=== PATIENT | male | born 1950 | race American Indian/Alaskan Native ===

== ENCOUNTER 2017-11-12 14:25 | Inpatient (IN) | payer MEDICARE ==
[2017-11-12] MEDS ORDERED: Promethazine/Cod 6.25mg-10mg/5ml Syr UD PO STA (14:48)
--- NOTE | 2017-11-12 14:51 | ED PDOC ---
Arrival/HPI - General Chief Complaint: Flu-like Symptoms Time Seen by Provider: 11/12/17 14:26 Historian: Patient, Family (brother) - History of Present Illness Narrative History of Present Illness (Text): 11/12/17 14:49 This 67 yo male who denies pmh, former smoker, presents to this ED with his brother complaining of nasal discharge, right ear discharge x 3 days. Brother stated patient has lost weight. Patient admits decreased appetite. Patient also noted a cough for 3 -4 days. Denies fever, sob, cp, abdominal pain, or abnormal gait. Time/Duration: Other (see hpi) Context: Home Past Medical History - Provider Review Nursing Documentation Reviewed: Yes - Psychiatric Hx Psychophysiologic Disorder: No Hx Substance Use: No - Anesthesia Hx Anesthesia: No Family/Social History - Physician Review Nursing Documentation Reviewed: Yes Family/Social History: Other (noncontributory) Smoking Status: Never Smoked Hx Alcohol Use: Yes Frequency of alcohol use: Socially Hx Substance Use: No Allergies/Home Meds Allergies/Adverse Reactions: Allergies No Known Allergies Allergy (Verified 11/12/17 14:28) Review of Systems - Review of Systems Constitutional: Normal. absent: Fatigue, Weight Change, Fevers Eyes: Normal ENT: Sore Throat, Rhinorrhea, Other (right ear drainage) Respiratory: Cough. absent: SOB, Sputum, Wheezing Cardiovascular: Normal. absent: Chest Pain, Palpitations, Edema Gastrointestinal: Normal. absent: Abdominal Pain, Nausea, Vomiting Genitourinary Male: Normal. absent: Dysuria, Frequency, Hematuria Musculoskeletal: Normal. absent: Back Pain, Neck Pain, Myalgias Skin: Normal. absent: Rash Neurological: Headache (see hpi). absent: Dizziness, Focal Weakness, Gait Changes, Speech Changes, Facial Droop, Disequilibrium, Seizure Endocrine: Normal Hemo/Lymphatic: Normal Psychiatric: Normal Physical Exam Vital Signs Temp Pulse Resp BP Pulse Ox 11/12/17 16:37 73 137/98 H 11/12/17 16:33 72 18 137/98 H 97 11/12/17 14:32 97.8 F 98 H 17 146/107 H 94 L Temperature: Afebrile Blood Pressure: Hypertensive Pulse: Regular Respiratory Rate: Normal Appearance: Positive for: Well-Appearing, Non-Toxic, Comfortable Pain Distress: None Mental Status: Positive for: Alert and Oriented X 3 - Systems Exam Head: Present: Atraumatic, Normocephalic Pupils: Present: PERRL Extroacular Muscles: Present: EOMI Conjunctiva: Present: Normal Ears: Present: TM Bulging, Fluid, Other ((+) right ear drainage. (+) Mild b/l mastoid tenderness with cellulitis) Mouth: Present: Moist Mucous Membranes, Normal Lips, Normal Tounge. No: Drooling Pharnyx: Present: Normal. No: ERYTHEMA, EXUDATE, TONSILS ENLARGED Nose (External): Present: Atraumatic Nose (Internal): Present: Rhinorrhea Neck: Present: Normal Range of Motion, Trachea Midline. No: Meningeal Signs, MIDLINE TENDERNESS, Paraspinal Tenderness, Lymphadenopathy Respiratory/Chest: Present: Clear to Auscultation, Good Air Exchange. No: Respiratory Distress, Accessory Muscle Use, Wheezes, Retracting, Rhonchi Cardiovascular: Present: Regular Rate and Rhythm, Normal S1, S2. No: Murmurs Abdomen: Present: Normal Bowel Sounds. No: Tenderness, Distention, Peritoneal Signs, Rebound, Guarding Back: Present: Normal Inspection. No: CVA Tenderness Upper Extremity: Present: Normal Inspection, Normal ROM. No: Cyanosis, Edema Lower Extremity: Present: Normal Inspection, Normal ROM. No: Edema Neurological: Present: GCS=15, CN II-XII Intact, Speech Normal Skin: Present: Warm, Dry, Normal Color. No: Rashes Psychiatric: Present: Alert, Oriented x 3, Normal Insight, Normal Concentration Medical Decision Making ED Course and Treatment: 11/12/17 16:[address] Hoffman regarding mastoiditis, weight loss, decreased appetite, CKD, hypercalcemia. He agreed with plan for admission. He said he would enter medical consults. Re-evaluation Time: 16:56 Reassessment Condition: Re-examined, Improving,but remains with symptoms - Lab Interpretations Lab Results: 11/12/17 15:00 11/12/17 15:00 Lab Results 11/12/17 15:00: Magnesium 1.6 L, Lactate Dehydrogenase 470, Total Creatine Kinase 46, Troponin I < 0.01 11/12/17 15:00: Sodium 141, Potassium 3.4 L, Chloride 105, Carbon Dioxide 24, Anion Gap 16, BUN 23 H, Creatinine 1.6 H, Est GFR ( Amer) 53, Est GFR ( Non-Af Amer) 44, Random Glucose 115 H, Calcium 11.3 H, Total Bilirubin 0.7, AST 32, ALT 31, Alkaline Phosphatase 66, Total Protein 9.0 H, Albumin 3.8, Globulin 5.2, Albumin/Globulin Ratio 0.7 L 11/12/17 15:00: Influenza Typ A,B (EIA) Negative for flu a/b 11/12/17 15:00: WBC 10.3, RBC 3.66, Hgb 11.1 L, Hct 33.2 L, MCV 90.7, MCH 30.3, MCHC 33.4, RDW 11.3 L, Plt Count 384, MPV 10.5, Gran % 61.4, Lymph % (Auto) 28.3 , Bell % (Auto) 9.6 H, Eos % (Auto) 0.6 L, Baso % (Auto) 0.1, Gran # 6.35, Lymph # (Auto) 2.9, Bell # (Auto) 1.0 H, Eos # (Auto) 0.1, Baso # (Auto) 0.01 I have reviewed the lab results: Yes Interpretation: Abnormal lab values - RAD Interpretation Narrative RAD Interpretations (Text): 11/12/17 16:53 PROCEDURE: CT OF THE TEMPORAL BONES WITHOUT CONTRAST HISTORY: right mastoid pain, right ear discharge COMPARISON: None available. TECHNIQUE: High resolution axial images of the temporal bones were obtained. Coronal and sagittal reformats were generated. Radiation dose: Total exam DLP = 954 mGy-cm. This CT exam was performed using one or more of the following dose reduction techniques: Automated exposure control, adjustment of the mA and/or kV according to patient size, and/or use of iterative reconstruction technique. FINDINGS: RIGHT TEMPORAL BONE: RIGHT MIDDLE EAR: Complete opacification. The scutum and ossicles are intact RIGHT INNER EAR: Cochlea: Normal Semicircular canals: Normal RIGHT MASTOID AIR CELLS: Complete opacification of mastoid air cells RIGHT INTERNAL AUDITORY CANAL: Normal RIGHT EXTERNAL AUDITORY CANAL: Normal RIGHT VESTIBULAR AND COCHLEAR AQUEDUCT: Normal OTHER: LEFT TEMPORAL BONE: LEFT MIDDLE EAR: Complete opacification. The scutum and ossicles are intact LEFT INNER EAR: Cochlea: Normal Semicircular canals: Normal LEFT MASTOID AIR CELLS: Complete opacification of mastoid air cells LEFT INTERNAL AUDITORY CANAL: Normal LEFT EXTERNAL AUDITORY CANAL: Normal LEFT VESTIBULAR AND COCHLEAR AQUEDUCTS: Normal OTHER FINDINGS: None . IMPRESSION: Bilateral otomastoiditis. 11/12/17 17:05 chest x-rays: NAD Radiology Orders: 11/12/17 14:48 CHEST TWO VIEWS (PA/LAT) [RAD] Stat 11/12/17 14:58 HEAD W/O CONTRAST [CT] Stat 11/12/17 15:01 MASTOIDS W/O CONTRAST [CT] Stat - EKG Interpretation Interpreted by ED Physician: Yes (NSR @ [address] changes) Type: 12 lead EKG Comparison: No previous EKG avail. - Medication Orders Current Medication Orders: Vancomycin HCl (Vancomycin 1gm) 1 gm in 250 mls @ 167 mls/hr IVPB STAT STA PRN Reason: Protocol Stop: 11/12/17 17:22 Last Admin: 11/12/17 16:50 Dose: 167 mls/hr eMAR Start Stop Document 11/12/17 16:50 SRE (Rec: 11/12/17 16:51 SRE [id number]) Intravenous Solution Start Date 11/12/17 Start Time 16:51 End Date 11/12/17 End time 18:25 Total Infusion Time 94 Sodium Chloride (Sodium Chloride 0.9%) 1,000 mls @ 999 mls/hr IV .[id number] STA Stop: 11/12/17 17:13 Last Admin: 11/12/17 16:35 Dose: 999 mls/hr eMAR Start Stop Document 11/12/17 16:35 SRE (Rec: 11/12/17 16:36 SRE [id number]) Intravenous Solution Start Date 11/12/17 Start Time 16:36 End Date 11/12/17 End time 17:40 Total Infusion Time 64 Sodium Chloride (Sodium Chloride 0.45%) 1,000 mls @ 60 mls/hr IV .[id number] PATY Ceftriaxone Sodium (Rocephin 1 Gram Ivpb) 1 gm in 100 mls @ 100 mls/hr IVPB DAILY PATY PRN Reason: Protocol Discontinued Medications Amlodipine Besylate (Norvasc) 5 mg PO STAT STA Stop: 11/12/17 16:18 Last Admin: 11/12/17 16:37 Dose: 5 mg MAR Pulse and Blood Pressure Document 11/12/17 16:37 SRE (Rec: 11/12/17 16:37 SRE [id number]) Pulse Pulse Rate (60-90) 73 Blood Pressure Blood Pressure (100/60-150/90) 137/98 Ceftriaxone Sodium (Rocephin 1 Gram Ivpb) 1 gm in 100 mls @ 200 mls/hr IVPB STAT STA PRN Reason: Protocol Stop: 11/12/17 16:21 Last Admin: 11/12/17 16:12 Dose: 200 mls/hr eMAR Start Stop Document 11/12/17 16:12 SRE (Rec: 11/12/17 16:13 SRE [id number]) Intravenous Solution Start Date 11/12/17 Start Time 16:13 End Date 11/12/17 End time 17:15 Total Infusion Time 62 Potassium Chloride (K-Dur 20 Meq Er Tab) 20 meq PO STAT STA Stop: 11/12/17 16:19 Last Admin: 11/12/17 16:37 Dose: 20 meq Promethazine HCl/Codeine (Phenergan/Codeine Oral Syrup) 5 ml PO STAT STA Stop: 11/12/17 14:49 Last Admin: 11/12/17 15:03 Dose: 5 ml Disposition/Present on Arrival - Present on Arrival Any Indicators Present on Arrival: No History of DVT/PE: No History of Uncontrolled Diabetes: No Urinary Catheter: No History of Decub. Ulcer: No History Surgical Site Infection Following: None - Disposition Have Diagnosis and Disposition been Completed?: Yes Diagnosis: Mastoiditis of both sides, CKD (chronic kidney disease), Hypercalcemia, Weight loss, unintentional, Ear drainage right Disposition: HOSPITALIZED Disposition Time: 16:59 Patient Plan: Admission Patient Problems: Current Active Problems Problem Status Onset CKD (chronic kidney disease) Acute Ear drainage right Acute Hypercalcemia Acute Mastoiditis of both sides Acute Weight loss, unintentional Acute Condition: STABLE Referrals: [employer] Mamta Palomino, [Primary Care Provider] - Follow up with primary Forms: [employer] (Cameroonian)
[2017-11-12 15:16] LABS: ALB/GLOB RATIO 0.7 (1.1-1.8); ALBUMIN 3.8 g/dL (3.0-4.8); CALCIUM 11.3 mg/dL (8.4-10.5)
[2017-11-12 15:26] LABS: BASO # 0.01 K/mm3 (0.0-2.0); BASO % 0.1 % (0.0-3.0); EOS # 0.1 (0.0-0.7); EOS % 0.6 % (1.5-5.0); GRAN # 6.35 (1.4-6.5); GRAN % 61.4 % (50.0-68.0); HEMOGLOBIN 11.1 g/dL (14.0-18.0); LYMPH # 2.9 (1.2-3.4); LYMPH % 28.3 % (22.0-35.0); MEAN CELL VOLUME 90.7 fl (80.0-105.0); MEAN CORPUSCULAR HEMOGLOBIN 30.3 pg (25.0-35.0); MEAN CORPUSCULAR HGB CONC 33.4 g/dl (31.0-37.0); MEAN PLATELET VOLUME 10.5 fl (7.0-11.0); MONO % 9.6 % (1.0-6.0); RBC 3.66 10^6/uL (3.5-6.1); RED CELL DISTRIBUTION WIDTH 11.3 % (11.5-14.5); WHITE BLOOD COUNT 10.3 10^3/ul (4.5-11.0)
[2017-11-12 15:38] LABS: MAGNESIUM 1.6 mg/dL (1.7-2.2)
[2017-11-12 15:51] LABS: TROPONIN I < 0.01 ng/mL
[2017-11-12] MEDS ORDERED: cefTRIAXone 1 gm 1 GM/100 ML BAG IVPB STA (15:52)
[2017-11-12] MEDS ORDERED: Vancomycin 1gm in NS 250ml 1 GM/250 ML BAG IVPB STA (15:53)
[2017-11-12] MEDS ORDERED: Sodium Chloride 0.9% 1,000 ML IV STA (16:13)
[2017-11-12] MEDS ORDERED: Potassium Chloride 20 mEq ER Tab PO STA (16:18)
--- NOTE | 2017-11-12 16:36 | CT ---
PROCEDURE: CT HEAD WITHOUT CONTRAST. HISTORY: right side CARIAS COMPARISON: None available. TECHNIQUE: Axial computed tomography images were obtained through the head/brain without intravenous contrast. Radiation dose: Total exam DLP = 906 mGy-cm. This CT exam was performed using one or more of the following dose reduction techniques: Automated exposure control, adjustment of the mA and/or kV according to patient size, and/or use of iterative reconstruction technique. FINDINGS: HEMORRHAGE: No intracranial hemorrhage. BRAIN: No mass effect or edema. No atrophy or chronic microvascular ischemic changes. VENTRICLES: Unremarkable. No hydrocephalus. CALVARIUM: Unremarkable. PARANASAL SINUSES: Unremarkable as visualized. No significant inflammatory changes. MASTOID AIR CELLS: Bilateral mastoiditis OTHER FINDINGS: None. IMPRESSION: No acute intracranial findings. Bilateral mastoiditis
--- NOTE | 2017-11-12 16:40 | CT ---
PROCEDURE: CT OF THE TEMPORAL BONES WITHOUT CONTRAST HISTORY: right mastoid pain, right ear discharge COMPARISON: None available. TECHNIQUE: High resolution axial images of the temporal bones were obtained. Coronal and sagittal reformats were generated. Radiation dose: Total exam DLP = 954 mGy-cm. This CT exam was performed using one or more of the following dose reduction techniques: Automated exposure control, adjustment of the mA and/or kV according to patient size, and/or use of iterative reconstruction technique. FINDINGS: RIGHT TEMPORAL BONE: RIGHT MIDDLE EAR: Complete opacification. The scutum and ossicles are intact RIGHT INNER EAR: Cochlea: Normal Semicircular canals: Normal RIGHT MASTOID AIR CELLS: Complete opacification of mastoid air cells RIGHT INTERNAL AUDITORY CANAL: Normal RIGHT EXTERNAL AUDITORY CANAL: Normal RIGHT VESTIBULAR AND COCHLEAR AQUEDUCT: Normal OTHER: LEFT TEMPORAL BONE: LEFT MIDDLE EAR: Complete opacification. The scutum and ossicles are intact LEFT INNER EAR: Cochlea: Normal Semicircular canals: Normal LEFT MASTOID AIR CELLS: Complete opacification of mastoid air cells LEFT INTERNAL AUDITORY CANAL: Normal LEFT EXTERNAL AUDITORY CANAL: Normal LEFT VESTIBULAR AND COCHLEAR AQUEDUCTS: Normal OTHER FINDINGS: None . IMPRESSION: Bilateral otomastoiditis.
--- NOTE | 2017-11-12 17:17 | RAD ---
HISTORY: cough COMPARISON: No prior. TECHNIQUE: Chest PA and lateral FINDINGS: LUNGS: No active pulmonary disease. PLEURA: No significant pleural effusion identified. No pneumothorax apparent. CARDIOVASCULAR: Normal. OSSEOUS STRUCTURES: No significant abnormalities. VISUALIZED UPPER ABDOMEN: Normal. OTHER FINDINGS: None. IMPRESSION: No active disease.
[2017-11-12] MEDS: Sodium Chloride 0.45% 1,000 ML IV SCH (17:44)
[2017-11-12 18:01] VITALS: BMI 27.8
[2017-11-12] MEDS: Piperacillin/Tazobact 3.375 gm 100 ML IVPB SCH ×2 (18:15→23:06)
[2017-11-12 21:58] LABS: URINE BILIRUBIN NEGATIVE (NEGATIVE); URINE BLOOD LARGE (NEGATIVE); URINE GLUCOSE (UA) NEGATIVE (NEGATIVE); URINE LEUKOCYTE ESTERASE SMALL Leu/uL (NEGATIVE); URINE NITRATE NEGATIVE (NEGATIVE); URINE PROTEIN NEGATIVE mg/dL (<30 mg/dL); URINE UROBILINOGEN 0.2 E.U./dL (<1 E.U./dL)
[2017-11-12 22:55] LABS: URINE APPEARANCE SL CLOUDY (CLEAR); URINE COLOR YELLOW (YELLOW)
[2017-11-12 22:56] LABS: URINE RBC TNTC /hpf (0-2)
[2017-11-12 22:57] LABS: URINE BACTERIA MOD (NEG)
[2017-11-13] MEDS: Piperacillin/Tazobact 3.375 gm 100 ML IVPB SCH ×4 (06:16→23:29)
[2017-11-13 06:59] LABS: HEMOGLOBIN 9.9 g/dL (14.0-18.0); MEAN CELL VOLUME 90.7 fl (80.0-105.0); MEAN CORPUSCULAR HEMOGLOBIN 29.6 pg (25.0-35.0); MEAN CORPUSCULAR HGB CONC 32.7 g/dl (31.0-37.0); MEAN PLATELET VOLUME 10.3 fl (7.0-11.0); RBC 3.34 10^6/uL (3.5-6.1); RED CELL DISTRIBUTION WIDTH 11.4 % (11.5-14.5); WHITE BLOOD COUNT 8.7 10^3/ul (4.5-11.0)
[2017-11-13 07:16] LABS: ALB/GLOB RATIO 0.7 (1.1-1.8); ALBUMIN 3.3 g/dL (3.0-4.8); CALCIUM 10.9 mg/dL (8.4-10.5)
--- NOTE | 2017-11-13 07:35 | HP ---
HISTORY OF PRESENT ILLNESS: I was called down to the emergency room. He is there with his brother. He is complaining of nasal discharge, right ear discharge for three days with pus, also he has weight loss, decreased appetite. He has flu symptoms for three to four days, coughing, no fever though. He is a 67-year-old man, was not feeling well for three days and then when his ear started to drain pus in the right ear, he decided to come to the emergency room. He is a former smoker. He has no real history. He does not see any doctors. REVIEW OF SYSTEMS: He is tired. He has got pus coming out of his right ear. He has got a sore throat. He is coughing. No chest pain or palpitations. No abdominal pain, nausea, or vomiting. He has got a sore throat. No problems urinating. No back pain. Skin for the most part is intact. I do not think he has any rashes or ulcers. He does have headache but not dizzy. No anxiety or depression. PHYSICAL EXAMINATION: GENERAL: He is comfortable in bed right now. He is alert and oriented x3. VITAL SIGNS: He has 97.8 temp, 98 pulse, 17 respiratory rate, 146/107 blood pressure, 94% O2 sat. HEENT: He can hardly hear because of the pus in his ear. Head is atraumatic, normocephalic. Extraocular muscles are intact. Pupils are equal and reactive to light. Throat is moist. Ears: He has got pus coming out of the right ear. Fluid in the left ear. NECK: Supple. HEART: Regular rate. Normal S1 and S2. LUNGS: Clear to auscultation with decreased breath sounds bilaterally. ABDOMEN: Soft, nontender. Positive bowel sounds. No guarding. No rebound. No CVA tenderness. EXTREMITIES: No edema. NEUROLOGICAL: GCS is 15. Cranial nerves II through XII grossly intact. He is alert and oriented x3. SKIN: Warm and dry. No apparent ulcers or rashes appreciated. LYMPHATIC: Thyroid is midline. No palpable lymphadenopathy. LABORATORY DATA: He had multiple labs and tests. He has a 141 sodium; potassium 3.4, potassium is replaced. BUN 23, creatinine is 1.6. I started him on IV fluids. GFR is 44, sugar is 115, we will keep an eye on the blood sugar; calcium 11.3, hopefully that will come down with IV fluids. Magnesium is 1.6, total bili is 0.7, AST is 32, ALT is 31, alkaline phosphatase 66, total protein 9, lactate dehydrogenase is 47. Total creatinine kinase is 46. Troponin I is less than 0.01, albumin is 3.8. White count is 7.3, hemoglobin 11.2, hematocrit 33.2, platelets are 384. IMPRESSION AND PLAN: He will have a consult with Ear, Nose, and Throat, also Infectious Disease. He will be on Rocephin, potassium replacement and intravenous fluids. He was given a dose of vancomycin in the emergency room. He has a head CT pending and mastoid CT pending. He is here for possible mastoiditis. He has renal insufficiency, hypertension, low potassium, high calcium. Olvin Hoffman DO
--- NOTE | 2017-11-13 07:46 | CP.PCM.CON ---
<Dione Love - Last Filed: 11/13/17 08:37> History of Present Illness - History of Present Illness History of Present Illness: ENT consult for Dr. Hitchcock on behalf of Dr. Camarena Consulted for: BL otomastoiditis Patient is a 67M with 3 days of BL ear pain, sore throat, and decreased hearing. History is difficult to obtain d/t patient difficulty hearing. Yesterday purulent drainage began from his right ear. Patient denies any fevers , chills, but reports cough productive of non-bloody mucus. Patient states that throat pain has since resolved but that his loss of hearing has worsened. Denies any other symptoms. Patient states that he has never had this before. Review of Systems - Review of Systems All systems: reviewed and no additional remarkable complaints except (as per HPI ) Past Patient History - Past Social History Smoking Status: Former Smoker - MUSCULOSKELETAL/RHEUMATOLOGICAL Hx Falls: No - PSYCHIATRIC Hx Psychophysiologic Disorder: No - SURGICAL HISTORY Hx Surgeries: No - ANESTHESIA Hx Anesthesia: No Meds Allergies/Adverse Reactions: Allergies Allergy/AdvReac Type Severity Reaction Status Date / Time No Known Allergies Allergy Verified 11/12/17 14:28 - Medications Medications: Current Medications Sodium Chloride (Sodium Chloride 0.45%) 1,000 mls @ 60 mls/hr IV .[id number] [facility] Last Admin: 11/12/17 17:44 Dose: 60 mls/hr Ceftriaxone Sodium (Rocephin 1 Gram Ivpb) 1 gm in 100 mls @ 100 mls/hr IVPB DAILY [facility] PRN Reason: Protocol Piperacillin Sod/Tazobactam Sod (Zosyn 3.375 In Ns 100ml) 100 mls @ 200 mls/hr IVPB Q6 PATY PRN Reason: Protocol Stop: 11/19/17 18:01 Last Admin: 11/13/17 06:16 Dose: 200 mls/hr Physical Exam - Constitutional Appears: Well, Non-toxic, No Acute Distress - Head Exam Head Exam: ATRAUMATIC, NORMOCEPHALIC Additional comments: no mastoid erythema, crepitus, or tenderness. No skull lesions or evidence of trauma - ENT Exam ENT Exam: Mucous Membranes Moist, Normal Oropharynx Additional comments: right ear without erythema, non-tender, with purulent drainage in the external auditory canal. Left ear non-erythematous, non-tender, no erythema of the auditory canal, with purulence behind the tympanic membrane - Neck Exam Neck exam: Positive for: Normal Inspection. Negative for: Lymphadenopathy, Tenderness - Respiratory Exam Respiratory Exam: NORMAL BREATHING PATTERN. absent: Accessory Muscle Use, Respiratory Distress - Cardiovascular Exam Cardiovascular Exam: RRR - GI/Abdominal Exam GI & Abdominal Exam: Soft. absent: Distended, Tenderness - Extremities Exam Extremities exam: Positive for: pedal pulses present. Negative for: calf tenderness, pedal edema - Neurological Exam Neurological exam: Alert, Oriented x3 Additional comments: gross decreased hearing BL - Psychiatric Exam Psychiatric exam: Normal Affect, Normal Mood - Skin Skin Exam: Dry, Intact, Normal Color, Warm Results - Vital Signs Recent Vital Signs: Last Vital Signs Temp 99 F 11/13/17 00:00 Pulse 69 11/13/17 00:00 Resp 20 11/13/17 00:00 BP 133/98 H 11/13/17 00:00 Pulse Ox 95 11/13/17 00:00 - Labs Result Diagrams: 11/13/17 06:15 11/13/17 06:15 Labs: Laboratory Results - last 24 hr 11/12/17 11/13/17 11/13/17 21:30 06:15 06:15 WBC 8.7 RBC 3.34 L Hgb 9.9 L Hct 30.3 L MCV 90.7 MCH 29.6 MCHC 32.7 RDW 11.4 L Plt Count 327 MPV 10.3 Sodium 141 Potassium 3.8 Chloride 107 Carbon Dioxide 26 Anion Gap 12 BUN 19 Creatinine 1.6 H Est GFR ( Amer) 53 Est GFR (Non-Af Amer) 44 Random Glucose 94 Calcium 10.9 H Total Bilirubin 0.7 AST 35 ALT 25 Alkaline Phosphatase 59 Total Protein 8.0 Albumin 3.3 Globulin 4.7 Albumin/Globulin Ratio 0.7 L Urine Color Yellow Urine Appearance Sl cloudy Urine pH 6.0 Ur Specific Douglas 1.020 Urine Protein Negative Urine Glucose (UA) Negative Urine Ketones Negative Urine Blood Large H Urine Nitrate Negative Urine Bilirubin Negative Urine Urobilinogen 0.2 Ur Leukocyte Esterase Small H Urine RBC Tntc Urine WBC 10 - 15 Ur Epithelial Cells 6 - 8 Urine Bacteria Mod Assessment & Plan - Assessment and Plan (Free Text) Assessment: 67M with BL otomastoiditis Plan: -Continue IV antibiotics and add ciprofloxacin drops BID BL ears -Culture ear fluid -f/u ID recommendations -encourage PO hydration Discussed with Dr. Hitchcock on behalf of Dr. Camarena, further recs per their service Dione Love, PGY2 <Bhupendra Khan - Last Filed: 11/13/17 15:57> Meds - Medications Medications: Current Medications Amlodipine Besylate (Norvasc) 5 mg PO DAILY [facility] Last Admin: 11/13/17 09:25 Dose: 5 mg Ciprofloxacin/Dexamethasone (Ciprodex Otic) 4 drop AU BID [facility] Last Admin: 11/13/17 09:25 Dose: 4 drop Sodium Chloride (Sodium Chloride 0.45%) 1,000 mls @ 60 mls/hr IV .[id number] [facility] Last Admin: 11/13/17 09:26 Dose: 60 mls/hr Piperacillin Sod/Tazobactam Sod (Zosyn 3.375 In Ns 100ml) 100 mls @ 200 mls/hr IVPB Q6 [facility] PRN Reason: Protocol Stop: 11/19/17 18:01 Last Admin: 11/13/17 12:07 Dose: 200 mls/hr Results - Vital Signs Recent Vital Signs: Last Vital Signs Temp 98.6 F 11/13/17 07:30 Pulse 88 11/13/17 09:25 Resp 20 11/13/17 07:30 BP 138/98 H 11/13/17 09:25 Pulse Ox 96 11/13/17 07:30 - Labs Result Diagrams: 11/13/17 06:15 11/13/17 06:15 Labs: Laboratory Results - last 24 hr 11/12/17 11/13/17 11/13/17 21:30 06:15 06:15 WBC 8.7 RBC 3.34 L Hgb 9.9 L Hct 30.3 L MCV 90.7 MCH 29.6 MCHC 32.7 RDW 11.4 L Plt Count 327 MPV 10.3 Sodium 141 Potassium 3.8 Chloride 107 Carbon Dioxide 26 Anion Gap 12 BUN 19 Creatinine 1.6 H Est GFR ( Amer) 53 Est GFR (Non-Af Amer) 44 Random Glucose 94 Calcium 10.9 H Total Bilirubin 0.7 AST 35 ALT 25 Alkaline Phosphatase 59 Total Protein 8.0 Albumin 3.3 Globulin 4.7 Albumin/Globulin Ratio 0.7 L Urine Color Yellow Urine Appearance Sl cloudy Urine pH 6.0 Ur Specific Douglas 1.020 Urine Protein Negative Urine Glucose (UA) Negative Urine Ketones Negative Urine Blood Large H Urine Nitrate Negative Urine Bilirubin Negative Urine Urobilinogen 0.2 Ur Leukocyte Esterase Small H Urine RBC Tntc Urine WBC 10 - 15 Ur Epithelial Cells 6 - 8 Urine Bacteria Mod Assessment & Plan (1) Mastoiditis of both sides Status: Acute Comment: I examined patient at bedside and agree with above report and treatment care plan. Dr Khan
[2017-11-13] MEDS: Ciprofloxacin/Dexamethasone OTIC SUSP AU SCH ×2 (09:25→17:28)
[2017-11-13] MEDS: Sodium Chloride 0.45% 1,000 ML IV SCH (09:26)
--- NOTE | 2017-11-13 09:52 | CARD ---
APPROVED REPORT EKG Measurement Heart [id number] <Conclusion> Normal sinus rhythm Normal ECG
[2017-11-13] MEDS ORDERED: cefTRIAXone 1 gm 1 GM/100 ML BAG IVPB SCH (10:00)
--- NOTE | 2017-11-13 12:51 | PN ---
DATE: SUBJECTIVE: I admitted him last night. He is having bilateral ear pus coming out, also with a bilateral mastoiditis on CAT scan. He is being seen by ENT and Infectious Disease. He is currently on Zosyn. He had a dose of vancomycin. He is on Rocephin, IV fluids. He is about the same, not much of a difference yet . PHYSICAL EXAMINATION VITAL SIGNS: He has a 98.6 temperature, 69 pulse, 144/97 blood pressure, I will address his blood pressure. He has a 20 respiratory rate, 96% O2 sat on room air. HEENT: Head is atraumatic, normocephalic. Pus coming out of both ears. Throat is moist. NECK: Supple. HEART: Regular rate. LUNGS: Decreased breath sounds, but clear. ABDOMEN: Soft. EXTREMITIES: No edema. MEDICATIONS: Ciprodex, Rocephin, IV fluids and Zosyn of the medicine he is on right now. LABORATORY DATA: He has a 141 sodium, potassium 3.8, better; BUN is 19, creatinine 1.6, GFR is 44, sugar is 94, calcium is 10.9, coming down; total bilirubin is 0.7, AST is 35, ALT is 25, alkaline phosphatase 59. Troponin I less than 0.01, total protein is 8. White count is 8.7, hemoglobin 9.9, hematocrit 30.3, platelets of 327. Urine is large blood, moderate bacteria. He is also having a urinary tract infection. I will also consult Urology and is negative for flu. I am going to put him on medicine for his blood pressure. Consult Urology. Continue IV antibiotics for his bilateral mastoiditis and ear infection. Olvin Hoffman DO [id number]
--- NOTE | 2017-11-13 16:11 | CP.PCM.CON ---
History of Present Illness - History of Present Illness History of Present Illness: 67 year old male with PMH of significant smoking history was brought in to [facility] complaining of right ear discharge for the past 3-4 days , associated with decreased hearing, anorexia. The patient states he was having rhinorrhea prior to this, but denies fever or chills, no sore throat, no body aches. He also denies headache, no nausea or vomiting, no shortness of breath, no cough, no abdominal pain, no diarrhea, no dysuria. CT head is showing bilateral otomastoiditis. Infectious Diseases consult is requested to further evaluate and manage. Review of Systems - Review of Systems All systems: reviewed and no additional remarkable complaints except (as per HPI ) Past Patient History - Past Social History Smoking Status: Never Smoked - PSYCHIATRIC Hx Psychophysiologic Disorder: No Hx Substance Use: No - SURGICAL HISTORY Hx Surgeries: No - ANESTHESIA Hx Anesthesia: No Meds Allergies/Adverse Reactions: Allergies Allergy/AdvReac Type Severity Reaction Status Date / Time No Known Allergies Allergy Verified 11/12/17 14:28 - Medications Medications: Current Medications Sodium Chloride (Sodium Chloride 0.45%) 1,000 mls @ 60 mls/hr IV .[id number] [facility] [place] Last Admin: 11/12/17 17:44 Dose: 60 mls/hr Ceftriaxone Sodium (Rocephin 1 Gram Ivpb) 1 gm in 100 mls @ 100 mls/hr IVPB DAILY [facility] PRN Reason: Protocol Piperacillin Sod/Tazobactam Sod (Zosyn 3.375 In Ns 100ml) 100 mls @ 200 mls/hr IVPB Q6 [facility] PRN Reason: Protocol Stop: 11/19/17 18:01 Physical Exam - Constitutional Appears: Non-toxic - Head Exam Head Exam: NORMAL INSPECTION - ENT Exam ENT Exam: Mucous Membranes Moist Additional comments: tenderness noted on both mastoids, noted of yellowish serous discharge from the right ear - Neck Exam Neck exam: Negative for: Meningismus - Respiratory Exam Respiratory Exam: Decreased Breath Sounds - Cardiovascular Exam Cardiovascular Exam: +S1, +S2 - GI/Abdominal Exam GI & Abdominal Exam: Soft. absent: Tenderness Results - Vital Signs Recent Vital Signs: Last Vital Signs Temp 97.8 F 11/12/17 14:32 Pulse 73 11/12/17 16:37 Resp 18 11/12/17 16:33 BP 137/98 H 11/12/17 16:37 Pulse Ox 97 11/12/17 16:33 - Labs Result Diagrams: 11/13/17 06:15 11/13/17 06:15 Assessment & Plan - Assessment and Plan (Free Text) Plan: Assessment Bilateral otomastoiditis Plan Follow up blood and ear discharge cultures; follow up further ENT evaluation and recommendations started patient on Zosyn will check HIV test as well will monitor clinically
[2017-11-14] MEDS: Sodium Chloride 0.45% 1,000 ML IV SCH (03:00)
[2017-11-14] MEDS: Piperacillin/Tazobact 3.375 gm 100 ML IVPB SCH ×3 (06:22→17:28)
[2017-11-14 06:57] LABS: HEMOGLOBIN 9.9 g/dL (14.0-18.0); MEAN CELL VOLUME 89.9 fl (80.0-105.0); MEAN CORPUSCULAR HEMOGLOBIN 29.3 pg (25.0-35.0); MEAN CORPUSCULAR HGB CONC 32.6 g/dl (31.0-37.0); MEAN PLATELET VOLUME 10.6 fl (7.0-11.0); RBC 3.38 10^6/uL (3.5-6.1); RED CELL DISTRIBUTION WIDTH 11.4 % (11.5-14.5); WHITE BLOOD COUNT 8.5 10^3/ul (4.5-11.0)
[2017-11-14 07:10] LABS: ALB/GLOB RATIO 0.7 (1.1-1.8); ALBUMIN 3.4 g/dL (3.0-4.8)
--- NOTE | 2017-11-14 08:19 | CON ---
DATE: 11/13/2017 GENITOURINARY CONSULTATION CHIEF COMPLAINT: Ear infection. HISTORY OF PRESENT ILLNESS: This is a 67-year-old male who is seen in his room at [facility]. The patient was admitted after complaining of a few days of nasal discharge and ear pain, also decreased appetite and flu-like symptoms. There is nothing urologic in his history and physical as far as any complaints. I discussed the consult with his nurse who reports a Urology consultation was called as patient had a urinary infection. The patient reports no voiding problem at this time. He denies any dysuria, urinary frequency, urgency, or gross hematuria. He does report having nocturia one time per night; this is a chronic problem. He has not seen a urologist or other doctors in some time. He denies any flank pain or history of kidney stones. He did feel feverish before coming to the hospital, but is unsure whether he had a fever. He denies any current chills. consultation was requested regarding the above. PAST MEDICAL HISTORY: The patient denies any diabetes, denies any high blood pressure, as per the HPI. MEDICATIONS: Currently include Ciprodex otic, Norvasc, and Zosyn. ALLERGIES: NO KNOWN DRUG ALLERGIES. FAMILY HISTORY: Noncontributory. SOCIAL HISTORY: Positive for smoking in the past, although quit. Denies EtOH use. REVIEW OF SYSTEMS: A 12-point review of systems was obtained. Positives for upper respiratory symptoms, ear pain, hard of hearing, headache. All other systems are negative. PHYSICAL EXAMINATION: GENERAL: The patient is awake and alert. He is answering questions, although somewhat hard of hearing. VITAL SIGNS: He is afebrile. Temperature was 98.6, BP 144/97, respirations 20. NECK: Supple. There is no adenopathy. CHEST: Reveals a normal inspiratory effort. CARDIAC: Showed a positive S1, S2. There was no peripheral edema. ABDOMEN: Soft, nontender, nondistended. There is no hepatosplenomegaly. There is no costovertebral angle tenderness. The bladder is not palpably distended. GENITOURINARY: Phallus is normal. Scrotum is normal. Testes are bilaterally descended, nontender, no masses. Epididymides are normal. EXTREMITIES: There is no cyanosis or edema noted. LABORATORY DATA: WBC count 8.7. GFR 63. Urinalysis showed large blood and small leukocyte esterase. Nitrites were negative. Blood cultures; no growth after 24 hours. No urine culture was done. No pertinent urologic imaging was done. IMPRESSION AND PLAN: This is a 67-year-old male with an ear infection. He is being seen by ENT and is on appropriate antibiotics. Urologically, the patient reports no symptoms of urinary infection and no voiding issues. His urinalysis does show significant blood as well as white cells. Plan will be to obtain a urine culture, although the patient is already on appropriate antibiotics. Plan would be to have the patient follow up with a urologist as an outpatient and/or his primary care physician as an outpatient. His urine should be retested and if hematuria is persistent, the patient will require a cystoscopy and upper tract evaluation. This is not the acute problem, which brought the patient to the hospital and this workup can be done as an outpatient. The patient should also have a PSA and prostate exam as well once his acute condition has improved. Thank you for allowing me to participate in the care of this patient. Eric Covington MD
--- NOTE | 2017-11-14 09:02 | CP.PCM.PN ---
Subjective - Date & Time of Evaluation Date of Evaluation: 11/14/17 Time of Evaluation: 08:58 - Subjective Subjective: ENT: Dr. Camarena Pt seen and examined. Resting comfortably in bed. Pain and hearing improved. Still has drainage from R ear. No F/C. Objective - Vital Signs/Intake and Output Vital Signs (last 24 hours): Temp Pulse Resp BP Pulse Ox 97.6 F 59 L 20 134/97 H 96 11/14/17 07:30 11/14/17 07:30 11/14/17 07:30 11/14/17 07:30 11/14/17 07:30 Intake and Output: 11/14/17 11/14/17 06:59 18:59 Intake Total 2380 Balance 2380 - Medications Medications: Current Medications Amlodipine Besylate (Norvasc) 5 mg PO DAILY [facility] Last Admin: 11/13/17 09:25 Dose: 5 mg Ciprofloxacin/Dexamethasone (Ciprodex Otic) 4 drop AU BID [facility] Last Admin: 11/13/17 17:28 Dose: 4 drop Sodium Chloride (Sodium Chloride 0.45%) 1,000 mls @ 60 mls/hr IV .[id number] [facility] Last Admin: 11/14/17 03:00 Dose: 60 mls/hr Piperacillin Sod/Tazobactam Sod (Zosyn 3.375 In Ns 100ml) 100 mls @ 200 mls/hr IVPB Q6 [facility] PRN Reason: Protocol Stop: 11/19/17 18:01 Last Admin: 11/14/17 06:22 Dose: 200 mls/hr - Labs Labs: 11/14/17 06:15 11/14/17 06:15 - Constitutional Appears: Non-toxic, No Acute Distress - Head Exam Head Exam: ATRAUMATIC, NORMOCEPHALIC - Eye Exam Eye Exam: EOMI - ENT Exam Additional comments: R ear draining white pus - GI/Abdominal Exam GI & Abdominal Exam: Soft. absent: Tenderness - Extremities Exam Extremities Exam: absent: Calf Tenderness, Pedal Edema - Neurological Exam Neurological Exam: Alert, Awake, Oriented x3 Assessment and Plan - Assessment and Plan (Free Text) Assessment: 67M w. Otomastoiditis -c/w ciprodex drops BID -c/w zosyn per ID -will d/w attending Zemaitis PGY3
[2017-11-14] MEDS ORDERED: Potassium Chloride 20 mEq ER Tab PO ONE (09:09)
[2017-11-14] MEDS: Ciprofloxacin/Dexamethasone OTIC SUSP AU SCH ×2 (09:25→17:25)
--- NOTE | 2017-11-14 15:22 | PN ---
DATE: SUBJECTIVE: He is resting comfortably in bed. He is actually doing a bit better. He is actually can hear better and has no discharge coming from his ears today. He is on Ciprodex, Norvasc, IV fluids, and Zosyn. I think he is starting to improve. He is eating a little bit also. OBJECTIVE: VITAL SIGNS: He has a 97.6 temperature, 59 pulse, 134/97 blood pressure, 20 respiratory rate, and 96% O2 sat on room air. I will change his blood pressure medication around this. HEENT: Head is atraumatic and normocephalic. Normal pus from the ears. Throat is moist. NECK: Supple. HEART: Regular rate. LUNGS: Clear to auscultation. ABDOMEN: Soft. EXTREMITIES: No edema. LABORATORY DATA: He has an 8.5 white count, 9.9 hemoglobin, 30.4 hematocrit with 330 platelets. Sodium 139, potassium 3.5, I will replace the potassium. He has a BUN of 19, creatinine 1.6. GFR is 44. Sugar is 88. Calcium is 11. Total bilirubin is 0.7, AST is 42, ALT is 29, alk phos is 61. Troponin I is less than 0.01. Total protein is 8.4. Urine with moderate bacteria, so we are treating him for a UTI. His micro was okay. ASSESSMENT AND PLAN: He is being seen by Infectious Disease, Urology for urinary tract infection, and Ears, Nose, and Throat. He has bilateral otomastoiditis. We will give him IV antibiotics. We are going to increase his Norvasc to 10 mg. Check his labs tomorrow. I will continue with aggressive treatment and care on [facility] [place] for bilateral otomastoiditis. Olvin Hoffman DO
--- NOTE | 2017-11-14 16:46 | PN ---
DATE: SUBJECTIVE: This 67-year-old male with acute/chronic otitis with questionable mastoiditis. He is seen with a chronic suppurative otitis infection. The patient is both on IV and topical drops for therapeutic treatment. The patient has a noted interval improvement. We will continue on IV antibiotics for 48 to 72 hours and continue drops as the patient has noted a decrease in the progression and drainage with decreasing pain. The patient is unable to hear. IMPRESSION: Acute right mastoiditis, suppurative otitis media with conductive/sensorineural hearing loss. 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 Fernando Camarena DO
[2017-11-15] MEDS: Piperacillin/Tazobact 3.375 gm 100 ML IVPB SCH ×2 (00:36→05:32)
--- NOTE | 2017-11-15 00:49 | PN ---
DATE: SUBJECTIVE: The patient is seen in bed, in no acute distress, nontoxic. PHYSICAL EXAMINATION: VITAL SIGNS: Temperature is 97, blood pressure is 137/90, respiratory rate of 20. HEENT: Unremarkable. NECK: Supple. LUNGS: Have decreased breath sounds. HEART: Normal S1 and S2. ABDOMEN: Soft, nontender. LABORATORY EXAMINATION: Reveals a white count is 8.5, hemoglobin of 9, platelets of 330. Chemistries reveals a BUN of 19, creatinine of 1.6. Urinalysis is noted, and influenza is negative. Microbiology reveals the blood cultures are noted and to be negative. ASSESSMENT AND PLAN: This is a 67-year-old male, who was seen earlier this morning in room 560, bed 2, with bilateral otomastoiditis and currently on Zosyn, with blood cultures negative. Ear cultures pending. Zosyn is active. Dr. Camarena's progress note is reviewed. 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 The patient's CAT scan is noted. We will follow closely with you. Jerome Weeks MD
[2017-11-15 06:53] LABS: HEMOGLOBIN 9.6 g/dL (14.0-18.0); MEAN CELL VOLUME 89.9 fl (80.0-105.0); MEAN CORPUSCULAR HEMOGLOBIN 29.4 pg (25.0-35.0); MEAN CORPUSCULAR HGB CONC 32.7 g/dl (31.0-37.0); MEAN PLATELET VOLUME 10.4 fl (7.0-11.0); RBC 3.27 10^6/uL (3.5-6.1); RED CELL DISTRIBUTION WIDTH 11.5 % (11.5-14.5); WHITE BLOOD COUNT 7.3 10^3/ul (4.5-11.0)
[2017-11-15 07:08] LABS: ALB/GLOB RATIO 0.7 (1.1-1.8); ALBUMIN 3.3 g/dL (3.0-4.8); CALCIUM 10.3 mg/dL (8.4-10.5)
[2017-11-15 07:41] VITALS: BP 132/90; PULSE 64; RESP 20; TEMP 99; O2SAT 96
[2017-11-15] MEDS: Ciprofloxacin/Dexamethasone OTIC SUSP AU SCH (08:59)
--- NOTE | 2017-11-15 22:32 | PN ---
DATE: LOCATION: Patient is in bed in room 560, bed 2. SUBJECTIVE: Patient was seen early this morning in room 560, bed 2. Doing well. No fevers, no chills. PHYSICAL EXAMINATION: VITAL SIGNS: Temperature is 99, blood pressure is 130/90, respiratory rate of 20, heart rate of 64. HEENT: Unremarkable. NECK: Supple. LUNGS: Have decreased breath sounds. HEART: Normal S1, S2. ABDOMEN: Soft, nontender. LABORATORY DATA: Reveals a white count of 7.3, hemoglobin of 9. Chemistries are noted, BUN of 18, creatinine of 1.5. Urinalysis is noted. Serology is noted. Right ear culture is coagulase-negative Staph, organism. ASSESSMENT AND PLAN: This is a 67-year-old male who was seen early this morning in 560, bed 2, who has bilateral otomastoiditis and cultures with coagulase-negative Staphylococcus, most likely a colonizer, not a true pathogen with acute right mastoiditis, suppurative otitis media, and conductive neural hearing loss and we will switch to p.o. Augmentin and p.o. doxycycline as per request of . patient to be on p.o. We will follow patient as outpatient, order an RPR and FTA. We will give at least 3 weeks, recommend a close followup with Dr. Hoffman and Dr. Camarena and myself. Patient understands all directions. He said he will follow and we will make further recommendations upon the availability of initial . Jerome Weeks MD
--- NOTE | 2017-11-16 04:22 | DS ---
HISTORY OF PRESENT ILLNESS: He is doing better. He is feeling better. There is less drainage from the right ear. He is comfortable in bed. OBJECTIVE: VITAL SIGNS: He has 99 temperature, 64 pulse, 132/90 blood pressure which is better than 138/102. I put him on Norvasc 10 mg. Respiratory rate 20, 96% O2 sat on room air. HEENT: Head is atraumatic, normocephalic. The right ear has had no more drainage, less swollen. Throat is clear. CARDIOVASCULAR: Heart is regular rate. RESPIRATORY: Lungs are clear to auscultation. ABDOMEN: Soft. EXTREMITIES: Without edema. MEDICATIONS: He is currently on Ciprodex otic, Norvasc, Zosyn IV, and IV fluids. LABORATORY DATA: He has white count of 7.3 , hemoglobin 9.6, hematocrit 29.4 with 330 platelets. Sodium 141, potassium 3.6, BUN 18, creatinine 1.5, GFR is 47, sugar is 89. Calcium is 10.3, total bilirubin is 0.5. AST is 39, ALT is 33, alkaline phosphatase 56. Troponin I was less than 0.01, total protein is 8. He had urinary tract infection. Negative for the flu. No growth in blood. ASSESSMENT AND PLAN: He is being seen by Infectious Disease and ENT and Urology. I am hoping we could change him from intravenous antibiotics to p.o. antibiotics and possibly get him discharged today. I will discuss that with Infectious Disease, and he can follow up on the outpatient with Ear, Nose and Throat. He has bilateral otomastoiditis, low potassium, otitis media, urinary tract infection, renal insufficiency, high calcium, and hypertension. He will follow up next week in the office. Olvin Hoffman DO
== END 2017-11-15 13:23 | disposition home or self-care (01) | DRG 153 ==
LOC: ED 14:25 → ERH 17:01 → 5RNO 18:02
PROVIDERS: ADMIT Family Medicine; ATTEND Family Medicine
DX: H70.003 Acute mastoiditis without complications, bilateral (principal); E83.52 Hypercalcemia; N39.0 Urinary tract infection, site not specified; H66.001 Acute suppurative otitis media without spontaneous rupture of ear drum, right ear; H90.71 Mixed conductive and sensorineural hearing loss, unilateral, right ear, with unrestricted hearing on the contralateral side; I12.9 Hypertensive chronic kidney disease with stage 1 through stage 4 chronic kidney disease, or unspecified chronic kidney disease; N18.9 Chronic kidney disease, unspecified; Z87.891 Personal history of nicotine dependence